=== PATIENT | female | born 1970 | race Caucasian/White ===

== ENCOUNTER 2017-10-04 09:47 | Day surgery (SDC) | payer MEDICAID ==
[2017-09-29 13:27] LABS: BASOPHILS % (AUTO) 0.5 % (0-1); EOSINOPHILS # (AUTO) 0.3 X10'3 (0-0.9); EOSINOPHILS % (AUTO) 3.8 % (0-6); HEMATOCRIT 40.9 % (35.0-45.0); HEMOGLOBIN 14.1 g/dl (12.0-16.0); LYMPHOCYTES # (AUTO) 2.2 X10'3 (1.1-4.8); LYMPHOCYTES % (AUTO) 24.5 % (21-51); MEAN CORPUSCULAR HEMOGLOBIN 28.8 PG (27.0-31.0); MEAN CORPUSCULAR HGB CONC 34.3 % (33.0-36.5); MEAN CORPUSCULAR VOLUME 83.9 FL (78-98); MEAN PLATELET VOLUME 7.6 FL (7.4-10.4); MONOCYTES # (AUTO) 0.5 X10'3 (0-0.9); NEUTROPHILS % (AUTO) 66.2 % (42-75); PLATELET COUNT 293 X10'3 (140-440); RED BLOOD COUNT 4.88 X10'6 (4.20-5.60); RED CELL DISTRIBUTION WIDTH 13.8 % (11.5-14.5); WHITE BLOOD COUNT 9.1 X10'3 (4.5-11.0)
[2017-09-29 13:52] LABS: ALANINE AMINOTRANSFERASE 22 U/L (12-78); ALBUMIN 3.9 G/DL (3.4-5.0); ALBUMIN/GLOBULIN RATIO 1.1 (1.1-1.5); ALKALINE PHOSPHATASE 30 IU/L (46-116); ANION GAP 7 (8-16); ASPARTATE AMINO TRANSFERASE 11 U/L (10-37); BILIRUBIN,TOTAL 0.4 MG/DL (0.1-1.0); BLOOD UREA NITROGEN 14 MG/DL (7-18); BUN/CREATININE RATIO 15.6 (6.6-38.0); CALCIUM 9.2 MG/DL (8.5-10.1); CHLORIDE 104 MMOL/L (99-107); GLUCOSE 99 MG/DL (70-104); POTASSIUM 3.5 MMOL/L (3.5-5.1); SODIUM 144 MMOL/L (135-145); TOTAL CARBON DIOXIDE 32.9 MMOL/L (24-32); TOTAL PROTEIN 7.5 G/DL (6.4-8.2); eGFR 67 ML/MIN
[2017-09-29 14:13] LABS: PARTIAL THROMBOPLASTIN TIME 25 SECONDS (22-32); PROTHROMBIN TIME 10.4 SECONDS (9.0-12.0)
[2017-10-04] VITALS (12 sets, daily range): BP systolic 111–162; BP diastolic 56–85
[~2017-10-04] VITALS: Ht 172.7 cm; Wt 101.6 kg
[2017-10-04] MEDS ORDERED: diphenhydrAMINE 25mg capsule PO PRN (10:10)
[2017-10-04] MEDS ORDERED: nitroGLYCERIN 0.4mg SUBLingual tab SL PRN (10:10)
[2017-10-04] MEDS ORDERED: methylPREDNISolone sod succ 125mg/2ml vial IV ONE (10:10)
[2017-10-04] MEDS ORDERED: LORazepam 0.5 MG tablet PO PRN (10:10)
[2017-10-04] MEDS ORDERED: normal saline 1000ml 1,000 ML IV SCH ×2 (10:10→14:10)
[2017-10-04] MEDS ORDERED: GABA600T2 PO (10:30)
[2017-10-04] MEDS ORDERED: POTA10TA19 PO (10:30)
[2017-10-04] MEDS ORDERED: DIPH50CA37 PO (10:30)
[2017-10-04] MEDS ORDERED: [UNRECOGNIZED DRUG - CODE] (10:30)
[2017-10-04] MEDS ORDERED: CHLO25TA2 PO (10:30)
[2017-10-04] MEDS ORDERED: CYCL-394 PO (10:30)
[2017-10-04] MEDS ORDERED: NAPR500T6 PO (10:30)
[2017-10-04] MEDS ORDERED: DICY10CA88 PO (10:30)
[2017-10-04] MEDS ORDERED: LOSA25TA96 PO (10:30)
[2017-10-04] MEDS ORDERED: ADV50100 IH (10:30)
[2017-10-04] MEDS ORDERED: LORA5SOL8 PO (10:30)
[2017-10-04] MEDS ORDERED: PROP40TA72 PO (10:30)
[2017-10-04] MEDS ORDERED: midazolam 2 mg/2 ml injection ONE ×2 (11:05→11:50)
[2017-10-04] MEDS ORDERED: fentaNYL/PF 50MCG/1 ML 2ML syringe ONE ×2 (11:05→11:59)
[2017-10-04] MEDS ORDERED: iohexol 350 MG/ML 50ML vial IV ONE (11:05)
[2017-10-04] MEDS ORDERED: iohexol 350MG/ML 100ml bottle IV ONE (11:05)
[2017-10-04] MEDS ORDERED: LIDOcaine 1%/PF (10mg/ml) 5ml vial ONE (11:06)
[2017-10-04] MEDS ORDERED: HYDROcodone/acetaminophen 5mg/325mg tablet PO PRN (14:10)
[2017-10-04] MEDS ORDERED: proCHLORperazine 10 MG/2 ml inj IV PRN (14:10)
[2017-10-04] MEDS ORDERED: ondansetron/PF 4mg/2ml inj IV PRN (14:10)
[2017-10-04] MEDS ORDERED: HYDROcodone/acetaminophen 10/325mg tab PO PRN (14:10)
[2017-10-04] MEDS ORDERED: OXAZEpam 15mg capsule PO PRN (14:10)
== END 2017-10-04 19:00 | disposition home or self-care (01) ==
LOC: SSTAY O 09:47
PROVIDERS: ATTEND Internal Medicine Cardiovascular Disease
DX: I25.10 Atherosclerotic heart disease of native coronary artery without angina pectoris (principal); I42.9 Cardiomyopathy, unspecified; I10 Essential (primary) hypertension; E66.9 Obesity, unspecified; J45.909 Unspecified asthma, uncomplicated
CPT/HCPCS: 36415; 71046; 80053; 85025; 85610; 85730; 93458; A6257; C1760; C1769; J1644; J2001; J2250; J2930; J3010; J7030; Q0163; Q9967; 99152; 99153; A4620

== ENCOUNTER 2020-03-01 16:35 | Emergency (ER) | payer OTHER, MEDICAID ==
[~2020-03-01] VITALS: Ht 170.2 cm; Wt 106.3 kg
[~2020-03-01 16:35] MED LIST: ADV50100 IH; CHLO25TA2 PO; CYCL-394 PO; DICY10CA88 PO; DIPH50CA37 PO; GABA600T13 PO; LORA5SOL8 PO; LOSA25TA96 PO; NAPR500T6 PO; POTA10TA19 PO; PROP40TA72 PO; [UNRECOGNIZED DRUG - CODE]
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
[2020-03-01 17:53] LABS: BASOPHILS # (AUTO) 0.1 X10'3 (0-0.2); BASOPHILS % (AUTO) 0.7 % (0-1); EOSINOPHILS # (AUTO) 0.1 X10'3 (0-0.9); EOSINOPHILS % (AUTO) 1.3 % (0-6); HEMATOCRIT 43.4 % (35.0-45.0); HEMOGLOBIN 15.1 g/dl (12.0-16.0); LYMPHOCYTES # (AUTO) 1.7 X10'3 (1.1-4.8); LYMPHOCYTES % (AUTO) 16.3 % (21-51); MEAN CORPUSCULAR HEMOGLOBIN 28.9 PG (27.0-31.0); MEAN CORPUSCULAR HGB CONC 34.8 g/dL (33.0-36.5); MEAN PLATELET VOLUME 7.6 FL (7.4-10.4); MONOCYTES # (AUTO) 0.6 X10'3 (0-0.9); MONOCYTES % (AUTO) 5.3 % (2-12); NEUTROPHILS # (AUTO) 8.1 X10'3 (1.8-7.7); NEUTROPHILS % (AUTO) 76.4 % (42-75); PLATELET COUNT 301 X10'3 (140-440); RED BLOOD COUNT 5.23 X10'6 (4.20-5.60); RED CELL DISTRIBUTION WIDTH 13.8 % (11.5-14.5); WHITE BLOOD COUNT 10.5 X10'3 (4.5-11.0)
[2020-03-01 17:54] LABS: ALANINE AMINOTRANSFERASE 22 U/L (12-78); ALBUMIN/GLOBULIN RATIO 1.2 (1.1-1.5); ALKALINE PHOSPHATASE 41 IU/L (46-116); ANION GAP 9 (8-16); ASPARTATE AMINO TRANSFERASE 8 U/L (10-37); BILIRUBIN,TOTAL 0.5 MG/DL (0.1-1.0); BLOOD UREA NITROGEN 15 MG/DL (7-18); CALCIUM 9.2 MG/DL (8.5-10.1); CHLORIDE 104 MMOL/L (99-107); CREATININE 0.88 MG/DL (0.40-0.90); GLUCOSE 158 MG/DL (70-104); MAGNESIUM 1.7 MG/DL (1.5-2.4); SODIUM 142 MMOL/L (135-145); TOTAL PROTEIN 7.4 G/DL (6.4-8.2); eGFR 68 ML/MIN
[2020-03-01 17:55] LABS: POTASSIUM 2.9 MMOL/L (3.5-5.1)
[2020-03-01] MEDS ORDERED: potassium Cl 20 mEq SR tablet PO STA (18:31)
[2020-03-01 18:42] VITALS: BP 153/88
== END 2020-03-01 18:44 | disposition home or self-care (01) ==
LOC: ER 16:35
DX: R07.89 Other chest pain (principal); E87.6 Hypokalemia; R11.0 Nausea; M54.9 Dorsalgia, unspecified; Z88.2 Allergy status to sulfonamides; Z91.041 Radiographic dye allergy status; Z91.040 Latex allergy status; Z79.899 Other long term (current) drug therapy
CPT/HCPCS: 36415; 80053; 83735; 84484; 85025; 93005; 99284

== ENCOUNTER 2023-12-13 15:48 | Outpatient (CLI) | payer MEDICAID ==
[~2023-12-13 15:48] MED LIST changes: +LOSA-415 PO; -LOSA25TA96 PO; +POTA-192 PO; -POTA10TA19 PO
== END 2023-12-13 23:59 | disposition home or self-care (01) ==
LOC: RAD 15:48
PROVIDERS: ATTEND Nurse Practitioner Family
DX: S32.010A Wedge compression fracture of first lumbar vertebra, initial encounter for closed fracture (principal); S32.020A Wedge compression fracture of second lumbar vertebra, initial encounter for closed fracture; M16.0 Bilateral primary osteoarthritis of hip; M85.88 Other specified disorders of bone density and structure, other site; M47.816 Spondylosis without myelopathy or radiculopathy, lumbar region; M48.061 Spinal stenosis, lumbar region without neurogenic claudication; M25.551 Pain in right hip; M54.50 Low back pain, unspecified; X58.XXXA Exposure to other specified factors, initial encounter; Y93.89 Activity, other specified; Y92.89 Other specified places as the place of occurrence of the external cause; Y99.8 Other external cause status
CPT/HCPCS: 72110; 73522